=== PATIENT | female | born 1995 | race Caucasian/White ===

== ENCOUNTER 2017-02-06 12:34 | Emergency (ER) | payer SELFPAY ==
[~2017-02-06] VITALS: Ht 160 cm; Wt 63.5 kg
[2017-02-06 13:06] VITALS: BP 122/78
--- NOTE | 2017-02-06 13:11 | NUR ---
PT AMBULATE TO RESTROOM. URINE CUP AND WIPE GIVEN FOR SAMPLE.
--- NOTE | 2017-02-06 13:18 | NUR ---
Patient ambulated to bed 05.
[2017-02-06] MEDS ORDERED: ACETAMINOPHEN EXTRA STRENGTH 500 MG TAB PO ONE (13:20)
--- NOTE | 2017-02-06 13:20 | NUR ---
Dr. Treviño evaluating patient at bedside.
[2017-02-06] MEDS ORDERED: ONDANSETRON 4 MG ODT PO ONE (13:25)
[2017-02-06] MEDS ORDERED: DEXAMETHASONE 4 MG TAB PO ONE (13:25)
[2017-02-06] MEDS ORDERED: ACETAMINOPHEN EXTRA STRENGTH 500 MG TAB ONE (13:25)
[2017-02-06 14:06] VITALS: BP 99/63
--- NOTE | 2017-02-06 14:06 | NUR ---
Patient discharged with v/s stable. Written and verbal after care instructions given and explained. Patient alert, oriented and verbalized understanding of instructions. Ambulatory with steady gait. All questions addressed prior to discharge. ID band removed. Patient advised to follow up with PMD. Rx of MOTRIN, ZOFRAN & AUGMENTIN given. Patient educated on indication of medication including possible reaction and side effects. Opportunity to ask questions provided and answered.
== END 2017-02-06 14:06 | disposition home or self-care (01) ==
LOC: MED 12:34
DX: J02.0 Streptococcal pharyngitis (principal); R11.2 Nausea with vomiting, unspecified
CPT/HCPCS: 99284; S0119

== ENCOUNTER 2017-07-10 12:48 | Emergency (ER) | payer MEDICAID ==
[~2017-07-10] VITALS: Ht 160 cm; Wt 63.5 kg
[2017-07-10 13:13] VITALS: BP 110/65
--- NOTE | 2017-07-10 13:17 | NUR ---
Natividad pleitez in ED - 07/10/17 at 1318 by [facility] PT AMBULATED TO BED 8.
--- NOTE | 2017-07-10 13:18 | NUR ---
Patient ambulated to bed 08.
--- NOTE | 2017-07-10 13:29 | NUR ---
21 Y/O FEMALE CAME WITH SOMEONE PER PT, INITIALLY SHE CAME BECAUSE LAST FRIDAY SHE HAS BEEN HAVING FEELS N/V AND DIARRHEA. TODAY SHE HAD VOMITED X2 , DIARRHEA X2 AND C/O HEADACHE WELL, SHE VOICES NO PAIN AT THIS TIME, SHE AA/O X4, BREATHING EVEN AND REGULAR. AMBULATORY WITH GAIT STEADY.
--- NOTE | 2017-07-10 14:03 | NUR ---
ER MD DR. CARTAGENA EVALUATING PT AT BEDSIDE.
[2017-07-10 14:46] VITALS: BP 103/72
--- NOTE | 2017-07-10 14:46 | NUR ---
Patient discharged with v/s stable. Written and verbal after care instructions given and explained. Patient alert, oriented and verbalized understanding of instructions. Ambulatory with steady gait. All questions addressed prior to discharge. ID band removed. Patient advised to follow up with PMD. Rx of DICLEGIS 10MG-10MG & CITRA ALEKSANDR RANDHAWA. Patient educated on indication of medication including possible reaction and side effects. Opportunity to ask questions provided and answered.
== END 2017-07-10 14:46 | disposition home or self-care (01) ==
LOC: MED 12:48
DX: O21.9 Vomiting of pregnancy, unspecified (principal); O75.2 Pyrexia during labor, not elsewhere classified; R19.7 Diarrhea, unspecified
CPT/HCPCS: 81002; 81025; 99283

== ENCOUNTER 2018-01-17 01:53 | Observation (INO) | payer MEDICAID ==
[~2018-01-17] VITALS: Ht 160 cm; Wt 72.6 kg
[2018-01-17] MEDS ORDERED: FERR-252 PO (02:01)
[2018-01-17] MEDS ORDERED: PREN-546 PO (02:01)
[2018-01-17] MEDS ORDERED: ONDANSETRON 4 MG/2 ML VIAL IVP PRN (02:35)
[2018-01-17] MEDS ORDERED: ONDANSETRON 4 MG/2 ML VIAL ONE (03:09)
[2018-01-17] MEDS ORDERED: AMPICILLIN 2,000 MG VIAL ONE ×4 (03:10→21:10)
[2018-01-17] MEDS: LACTATED RINGERS 1,000 ML IV SCH ×4 (03:11→23:36)
[2018-01-17 03:26] VITALS: BP 91/57
[2018-01-17] MEDS: AMPICILLIN 2,000 MG in NACL 0.9% 100 ML IV SCH ×4 (03:34→21:34)
[2018-01-17] MEDS ORDERED: TERBUTALINE 1 MG/ML VIAL SUBQ SCH (05:25)
[2018-01-17] MEDS ORDERED: TERBUTALINE 1 MG/ML VIAL SUBQ ONE ×2 (05:28→07:36)
--- NOTE | 2018-01-17 06:35 | NUR ---
PATIENT HAS BEEN SCREENED AND CATEGORIZED LOW NUTRITION RISK. PATIENT WILL BE SEEN WITHIN 7 DAYS OF ADMISSION. 01/23/18 SCOTT MINER MS, RDN
[2018-01-17 06:51] LABS: BILIRUBIN,URINE NEGATIVE (NEGATIVE); BLOOD, URINE 2+ (NEGATIVE); COLOR,URINE YELLOW (YELLOW); LEUKOCYTE ESTERASE ,URINE NEGATIVE (NEGATIVE); NITRITE, URINE NEGATIVE (NEGATIVE); UGLUCOSE NEGATIVE (NEGATIVE)
[2018-01-17 07:23] LABS: RBC,URINE 3-10 (FEW) /HPF (0-5)
[2018-01-17 07:24] LABS: APPEARANCE,URINE HAZY (CLEAR); WBC,URINE 0-5 (RARE) /HPF (0-5)
[2018-01-17] MEDS ORDERED: NALBUPHINE 10 MG/ML AMP ONE ×2 (08:06→17:03)
[2018-01-17] MEDS: NALBUPHINE 10 MG/ML AMP IVP PRN ×2 (08:11→17:11)
[2018-01-17] MEDS ORDERED: NIFEdipine 10 MG CAPLF PO SCH ×2 (16:10→21:30)
[2018-01-17] MEDS ORDERED: BETAMETH ACET/BETAMETH NA PH 30 MG/5 ML VIAL IM SCH (16:10)
[2018-01-17] MEDS ORDERED: NIFEdipine 10 MG CAPLF ONE ×2 (17:02→21:10)
[2018-01-17] MEDS ORDERED: BETAMETH ACET/BETAMETH NA PH 30 MG/5 ML VIAL IM ONE (17:02)
[2018-01-17] MEDS: NIFEdipine 10 MG CAPLF PO SCH (21:33)
[2018-01-18] MEDS: NIFEdipine 10 MG CAPLF PO SCH ×3 (01:36→06:51)
[2018-01-18] MEDS ORDERED: NIFEdipine 10 MG CAPLF ONE ×2 (01:36→05:24)
[2018-01-18] MEDS ORDERED: AMPICILLIN 2,000 MG VIAL ONE (03:18)
[2018-01-18] MEDS: AMPICILLIN 2,000 MG in NACL 0.9% 100 ML IV SCH (03:26)
[2018-01-18] MEDS: LACTATED RINGERS 1,000 ML IV SCH (09:29)
== END 2018-01-18 11:35 | disposition home or self-care (01) ==
LOC: MLD 01:53
PROVIDERS: ADMIT Obstetrics & Gynecology; ATTEND Obstetrics & Gynecology
DX: O21.2 Late vomiting of pregnancy (principal); O99.89 Other specified diseases and conditions complicating pregnancy, childbirth and the puerperium; M54.9 Dorsalgia, unspecified; O26.893 Other specified pregnancy related conditions, third trimester; R10.9 Unspecified abdominal pain; Z3A.34 34 weeks gestation of pregnancy
CPT/HCPCS: 51702; 76805; 81001; 96361; 96365; 96366; 96372; 96375; 96376; C1758; G0378; J0290; J0702; J2300; J2405; J3105; J7120

== ENCOUNTER 2018-06-25 15:11 | Emergency (ER) | payer MEDICAID ==
[~2018-06-25] VITALS: Ht 162.6 cm; Wt 65.4 kg
[~2018-06-25 15:11] MED LIST: FERR-252 PO; PREN-546 PO
[2018-06-25 15:18] VITALS: BP 100/47
--- NOTE | 2018-06-25 15:24 | NUR ---
PT AMBULATES TO BED 4
--- NOTE | 2018-06-25 15:30 | NUR ---
22 YO F BIB FAMILY W/ C/O PERSISTENT FEVER SINCE FRIDAY, VOMITING LAST NIGHT WITH RT SIDED ABDOMINAL PAIN RADIATING TO THE RT LOWER BACK; TOOK TYLENOL AT 1200 TODAY; DENIES DIARRHEA OR DIZZINESS. DENIES DYSURIA AT THIS TIME. AAOX4, GCS 15, CMS INTACT. RR EVEN AND UNLABORED, LUNGS BL CLEAR. ABD SOFT, NON-TENDER. BOWEL SOUNDS ACTIVE X 4 QUADS. ER MD NOTIFIED. PT NEEDS MET. SAFETY PRECAUTIONS IN PLACE. WILL CONTINUE TO MONITOR.
--- NOTE | 2018-06-25 15:31 | NUR ---
Patient being evaluated by physician at bedside.
[2018-06-25] MEDS ORDERED: NACL 0.9% 1,000 ML IV ONE (15:34)
[2018-06-25] MEDS ORDERED: KETOROLAC 30 MG/ML VIAL IVP ONE (15:35)
[2018-06-25] MEDS ORDERED: ONDANSETRON 4 MG/2 ML VIAL IVP ONE (15:35)
--- NOTE | 2018-06-25 15:51 | NUR ---
PT RETURNED FROM CT
--- NOTE | 2018-06-25 16:02 | NUR ---
PHLEB AT BEDSIDE AT THIS TIME
[2018-06-25 16:19] LABS: HEMATOCRIT 39.3 % (36-48); HEMOGLOBIN 13.1 g/dL (12.0-16.0); MEAN CORPUSCULAR HEMOGLOBIN 28 pg (27-31); MEAN CORPUSCULAR HGB CONC 33 g/dL (33-37); MEAN CORPUSCULAR VOLUME 83.4 fL (80-94); PLATELET COUNT (AUTO) 260 K/uL (140-450); RED BLOOD CELL COUNT(AUTO) 4.72 MIL/uL (4.20-5.40); RED CELL DISTRIBUTION WIDTH 12.4 % (11.6-13.7); WHITE BLOOD COUNT (AUTO) 15.8 K/uL (4.8-10.8)
[2018-06-25 17:13] LABS: ALBUMIN 3.9 g/dL (3.4-5.0); ANION GAP 12.5 (8-16); CREATININE 0.8 mg/dL (0.6-1.3); POTASSIUM 3.5 mmol/L (3.5-5.1); TOTAL BILIRUBIN 0.7 mg/dL (0.0-1.0)
[2018-06-25] MEDS ORDERED: cefTRIAXone 1,000 MG VIAL ONE (17:19)
[2018-06-25 18:00] VITALS: BP 108/60
--- NOTE | 2018-06-25 18:00 | NUR ---
Patient discharged with v/s stable. Written and verbal after care instructions given and explained. Patient alert, oriented and verbalized understanding of instructions. Ambulatory with steady gait. All questions addressed prior to discharge. ID band removed. Patient advised to follow up with PMD. Rx of Bactrim and MOtrin given. Patient educated on indication of medication including possible reaction and side effects. Opportunity to ask questions provided and answered.
[2018-06-25 19:10] LABS: LYMPHOCYTES % (MANUAL) 10 % (20-46); MONOCYTES % (MANUAL) 7 % (5-12)
== END 2018-06-25 18:00 | disposition home or self-care (01) ==
LOC: MED 15:11
DX: N12 Tubulo-interstitial nephritis, not specified as acute or chronic (principal); Z79.899 Other long term (current) drug therapy
CPT/HCPCS: 36415; 74176; 80053; 81002; 81025; 85025; 87040; 96361; 96365; 96375; 99285; J0696; J1885; J2405; J7060

== ENCOUNTER 2019-04-22 13:45 | Emergency (ER) | payer MEDICAID ==
[~2019-04-22] VITALS: Ht 160 cm; Wt 70.9 kg
[2019-04-22 13:48] VITALS: BP 110/66
--- NOTE | 2019-04-22 14:00 | NUR ---
Patient ambulated to bed 7
--- NOTE | 2019-04-22 14:15 | NUR ---
PT PRESENTS TO ED WITH C/O CHILLS AND FEVER FOR THE PAST 2 DAYS. DENIES DYSURIA BUT C/O RIGHT LOWER BACK PAIN; 5/10 AT THIS TIME. DENIES NAUSEA, VOMITING OR DIARRHEA. REPORTS GIVING 04/16/19 IN [facility]; BREASTFEEDS BABY. ORAL TEMP 101.4 AT THIS TIME. CONNECTED TO ACTIVITIES LEADER. BED LOCKED AND IN LOWEST POSITION. ERMD TO EVALUATE PT.
--- NOTE | 2019-04-22 14:26 | NUR ---
URINE SAMPLE COLLECTED.
[2019-04-22] MEDS ORDERED: NACL 0.9% 1,000 ML IV ONE (14:30)
[2019-04-22] MEDS ORDERED: ACETAMINOPHEN EXTRA STRENGTH 500 MG TAB PO ONE (14:35)
[2019-04-22 15:02] LABS: BASOPHILS % (AUTO) 0.5 % (0.0-2.0); EOSINOPHILS % (AUTO) 0.5 % (0.0-4.0); HEMATOCRIT 36.5 % (36-48); HEMOGLOBIN 12.3 g/dL (12.0-16.0); LYMPHOCYTES # (AUTO) 1.4 K/uL (2.5-16.5); MEAN CORPUSCULAR HEMOGLOBIN 29 pg (27-31); MEAN CORPUSCULAR HGB CONC 34 g/dL (33-37); MEAN CORPUSCULAR VOLUME 85.1 fL (80-94); MONOCYTES # (AUTO) 0.6 K/uL (0.8-1.0); MONOCYTES % (AUTO) 6.7 % (1.7-9.3); NEUTROPHILS # (AUTO) 7.2 K/uL (1.8-7.7); NEUTROPHILS % (AUTO) 77.3 % (42.2-75.2); PLATELET COUNT (AUTO) 336 K/uL (140-450); RED BLOOD CELL COUNT(AUTO) 4.28 MIL/uL (4.20-5.40); RED CELL DISTRIBUTION WIDTH 15.2 % (11.6-13.7); WHITE BLOOD COUNT (AUTO) 9.3 K/uL (4.8-10.8)
[2019-04-22 15:32] LABS: APPEARANCE,URINE HAZY (CLEAR); BILIRUBIN,URINE NEGATIVE (NEGATIVE); BLOOD, URINE 3+ (NEGATIVE); COLOR,URINE YELLOW (YELLOW); LEUKOCYTE ESTERASE ,URINE 2+ (NEGATIVE); NITRITE, URINE NEGATIVE (NEGATIVE); UGLUCOSE NEGATIVE (NEGATIVE)
--- NOTE | 2019-04-22 15:42 | NUR ---
ORAL TEMP 99.3 AT THIS TIME.
[2019-04-22 15:44] LABS: ANION GAP 14.8 (8-16); CARBON DIOXIDE 23.8 mmol/L (21-32); CREATININE 0.7 mg/dL (0.6-1.3); POTASSIUM 3.6 mmol/L (3.5-5.1)
[2019-04-22 15:47] LABS: RBC,URINE 50-80 /HPF (0-5); WBC,URINE TOO MANY TO COUNT /HPF (0-5)
[2019-04-22 15:49] LABS: ALBUMIN 2.8 g/dL (3.4-5.0); TOTAL BILIRUBIN 0.5 mg/dL (0.0-1.0)
--- NOTE | 2019-04-22 17:34 | NUR ---
ORAL TEMP 98.6 AT THIS TIME.
[2019-04-22] MEDS ORDERED: cefTRIAXone 1,000 MG VIAL ONE (17:36)
--- NOTE | 2019-04-22 17:46 | NUR ---
Patient resting comfortably in bed. Vital Signs within normal limits. Respirations even and unlabored.
[2019-04-22 18:05] VITALS: BP 118/72
--- NOTE | 2019-04-22 18:05 | NUR ---
Patient discharged with v/s stable. Written and verbal after care instructions given and explained. Patient alert, oriented and verbalized understanding of instructions. Ambulatory with steady gait. All questions addressed prior to discharge. ID band removed. Patient advised to follow up with PMD or UPHOLSTERY TRIMMER. Rx of Nitrofurantoin given. Patient educated on indication of medication including possible reaction and side effects. Opportunity to ask questions provided and answered.
== END 2019-04-22 18:05 | disposition home or self-care (01) ==
LOC: MED 13:45
DX: N39.0 Urinary tract infection, site not specified (principal); R51 Headache; Z79.899 Other long term (current) drug therapy
CPT/HCPCS: 36415; 80053; 81001; 81025; 84703; 85025; 85651; 86140; 87086; 96365; 99283; J0696; J7030